=== PATIENT | female | born 1965 | race African-American/Black ===

== ENCOUNTER 2017-04-30 16:10 | Inpatient (IN) | payer OTHER ==
[~2017-04-30] VITALS: Ht 165.1 cm; Wt 49.5 kg
[2017-04-30 17:12] LABS: HEMATOCRIT 27.7 % (36.0-46.0); MCH 24.7 PG (29.0-34.0); MCHC 31.4 G/DL (30.0-36.0); MCV 78.7 FL (83-99); MEAN PLAT.VOLUME 8.6 uM^3 (9.5-12.4); PLATELET COUNT 485 K/uL (156-360); RBC DIS.WIDTH-SD 67.2 % (39-53); RED BLOOD COUNT 3.52 M/uL (3.80-5.20); WHITE BLOOD COUNT 4.9 K/uL (4.1-10.2)
[2017-04-30 17:21] LABS: CHLORIDE 112 mEq/L (99-109); POTASSIUM 2.7 mEq/L (3.7-5.4); SODIUM 140 mEq/L (136-147)
[2017-04-30 17:23] LABS: GLUCOSE 89 mg/dL (70-99)
[2017-04-30 17:25] LABS: ANION GAP 10 MEQ/L (2-14); TOTAL BILIRUBIN 0.3 mg/dL (0.0-1.0)
[2017-04-30 17:27] LABS: ALKALINE PHOSPHATASE 130 IU/L (3-129); GFR ESTIMATE (CALCULATED) 47 mL/min/
[2017-04-30 17:28] LABS: UREA NITROGEN (BUN) 29 mg/dL (9-23)
[2017-04-30 17:46] LABS: LIPASE 2 U/L (1.0-51.0)
[2017-04-30 17:47] LABS: ABS NEUTROPHIL COUNT 4.2; ANISOCYTOSIS 2+; BAND NEUTROPHILS 18.3 % (0-8.0); EOSINOPHIL ABS CT 0; HYPOCHROMASIA 1+; LYMPHOCYTES 6.9 % (15.0-45.0); MACROCYTES 1+; MICROCYTOSIS 1+; SEG.NEUTROPHILS 67.8 % (46.0-76.0)
[2017-04-30 19:40] LABS: ADD MIUA? YES; BILIRUBIN NEGATIVE; BLOOD MODERATE; COLOR YELLOW ((YELLOW)); GLUCOSE (STRIP) NEGATIVE; KETONES NEGATIVE; LEUKOCYTES LARGE; NITRITE NEGATIVE; PROTEIN (STRIP) 100; SPECIFIC GRAVITY 1.027 (1.000-1.030); UROBILINOGEN 0.2 MG/DL (0.2-1.0)
[2017-04-30 19:57] LABS: BACTERIA 2+ /HPF; CASTS NONE SEEN /LPF; CRYSTALS NONE SEEN; EPITHELIAL CELLS RARE /HPF; MUCUS 2+ /LPF; UCUL ADDED? YES; WHITE BLOOD CELLS 20-30 /HPF (0-5)
[2017-04-30] MEDS ORDERED: TYLENOL EXTRA500 MG PO (21:12)
[2017-04-30 22:55] VITALS: BP 87/66
[2017-04-30 23:00] VITALS: BP 88/50
[2017-05-01] VITALS (24 sets, daily range): BP systolic 78–107; BP diastolic 60–77
[2017-05-01 00:24] LABS: METH RESISTANT S AUREUS PCR NEGATIVE (NEGATIVE)
[2017-05-01 00:30] LABS: PROBE CHECK PASS; SPECIMEN PROCESSING CONTROL PASS
[2017-05-01 13:34] LABS: ANION GAP 11 MEQ/L (2-14); CHLORIDE 115 MEQ/L (99-109); GFR ESTIMATE (CALCULATED) > 59 mL/min/; GLUCOSE 62 mg/dL (70-99); MAGNESIUM 1.5 mg/dl (1.3-2.7); POTASSIUM 2.9 MEQ/L (3.7-5.4); SAMPLE HEMOLYSIS CHECK 0; SAMPLE ICTERIC CHECK 0; SAMPLE LIPEMIA CHECK 0; SODIUM 144 MEQ/L (136-147); UREA NITROGEN (BUN) 19 mg/dL (9-23)
[2017-05-02] VITALS (23 sets, daily range): BP systolic 95–113; BP diastolic 69–89
[2017-05-02 01:23] LABS: POINT-OF-CARE METER ID UU13113731
[2017-05-02 02:33] LABS: HEMATOCRIT 25.3 % (36.0-46.0); MCH 24.9 PG (29.0-34.0); MCHC 30.8 G/DL (30.0-36.0); MCV 80.8 FL (83-99); MEAN PLAT.VOLUME 8.6 uM^3 (9.5-12.4); PLATELET COUNT 430 K/uL (156-360); RBC DIS.WIDTH-SD 70.2 % (39-53); RED BLOOD COUNT 3.13 M/uL (3.80-5.20); WHITE BLOOD COUNT 10.7 K/uL (4.1-10.2)
[2017-05-02 02:41] LABS: INTER. NORMALIZED RATIO 1.5; PROTHROMBIN TIME 16.9 SEC (10.2-12.9)
[2017-05-02 02:44] LABS: PTT 38.5 SEC (25-37)
[2017-05-02 02:47] LABS: CHLORIDE 114 mEq/L (99-109); SODIUM 140 mEq/L (136-147)
[2017-05-02 02:49] LABS: GLUCOSE 68 mg/dL (70-99)
[2017-05-02 02:51] LABS: ANION GAP 9 MEQ/L (2-14)
[2017-05-02 02:53] LABS: ALKALINE PHOSPHATASE 129 IU/L (3-129); GFR ESTIMATE (CALCULATED) 56 mL/min/
[2017-05-02 02:54] LABS: UREA NITROGEN (BUN) 18 mg/dL (9-23)
[2017-05-02 02:55] LABS: DIRECT BILIRUBIN 0.1 mg/dL (0.0-0.3)
[2017-05-02 03:00] LABS: POTASSIUM 3.8 mEq/L (3.7-5.4); TOTAL BILIRUBIN 0.2 mg/dL (0.0-1.0)
[2017-05-02 03:12] LABS: EOSINOPHIL (%) 0.5 % (0-5); EOSINOPHIL COUNT 0.1 K/uL (0-0.3); IMMATURE GRANULOCYTE (%) 1.4 % (0.0-0.7); IMMATURE GRANULOCYTE COUNT 0.2 K/uL; INSTRUMENT ABS NEUTROPHIL CT 9.4 K/uL; LYMPHOCYTE COUNT 0.7 K/uL (1.0-2.8); MONOCYTE (%) 4.2 % (3-12); MONOCYTE COUNT 0.5 K/uL (0-0.8); NEUTROPHIL (%) 87.4 % (45-76); NEUTROPHIL COUNT 9.4 K/uL (1.8-6.4)
[2017-05-02 04:48] LABS: HEMATOCRIT 27.1 % (36.0-46.0); MCH 24.9 PG (29.0-34.0); MCV 80.2 FL (83-99); MEAN PLAT.VOLUME 8.1 uM^3 (9.5-12.4); PLATELET COUNT 443 K/uL (156-360); RBC DIS.WIDTH-CV 24.6 % (11.8-14.6); RBC DIS.WIDTH-SD 69.5 % (39-53); RED BLOOD COUNT 3.38 M/uL (3.80-5.20); WHITE BLOOD COUNT 11.6 K/uL (4.1-10.2)
[2017-05-02 05:01] LABS: CHLORIDE 114 mEq/L (99-109); POTASSIUM 3.5 mEq/L (3.7-5.4); SODIUM 141 mEq/L (136-147)
[2017-05-02 05:03] LABS: GLUCOSE 72 mg/dL (70-99)
[2017-05-02 05:04] LABS: ANION GAP 9 MEQ/L (2-14)
[2017-05-02 05:07] LABS: GFR ESTIMATE (CALCULATED) > 59 mL/min/; UREA NITROGEN (BUN) 17 mg/dL (9-23)
[2017-05-03] VITALS (22 sets, daily range): BP systolic 81–160; BP diastolic 59–86
[2017-05-03 07:51] LABS: POINT-OF-CARE METER ID UU13113748
[2017-05-03 10:47] LABS: C DIFF TOXIN NEGATIVE (NEGATIVE); PROBE CHECK PASS; SPECIMEN PROCESSING CONTROL PASS
[2017-05-04] VITALS (28 sets, daily range): BP systolic 73–133; BP diastolic 54–91
[2017-05-04 05:24] LABS: HEMATOCRIT 18.9 % (36.0-46.0); MCHC 32.3 G/DL (30.0-36.0); MCV 80.4 FL (83-99); RBC DIS.WIDTH-CV 24.6 % (11.8-14.6); RED BLOOD COUNT 2.35 M/uL (3.80-5.20)
[2017-05-04 06:02] LABS: EOSINOPHIL (%) 0.3 % (0-5); IMMATURE GRANULOCYTE (%) 1.2 % (0.0-0.7); IMMATURE GRANULOCYTE COUNT 0.1 K/uL; INSTRUMENT ABS NEUTROPHIL CT 7.7 K/uL; LYMPHOCYTE COUNT 0.7 K/uL (1.0-2.8); MEAN PLAT.VOLUME 8.9 uM^3 (9.5-12.4); MONOCYTE (%) 6.2 % (3-12); MONOCYTE COUNT 0.6 K/uL (0-0.8); NEUTROPHIL COUNT 7.7 K/uL (1.8-6.4); PLAT.SUFFICIENCY ADEQUATE
[2017-05-04 06:04] LABS: PLATELET COUNT 274 K/uL (156-360)
[2017-05-04 06:16] LABS: ANION GAP 6 MEQ/L (2-14); CHLORIDE 117 MEQ/L (99-109); GFR ESTIMATE (CALCULATED) > 59 mL/min/; GLUCOSE 70 mg/dL (70-99); SAMPLE HEMOLYSIS CHECK 0; SAMPLE ICTERIC CHECK 0; SAMPLE LIPEMIA CHECK 0; SODIUM 144 MEQ/L (136-147); UREA NITROGEN (BUN) 12 mg/dL (9-23)
[2017-05-04 14:49] LABS: HEMATOCRIT 32.9 % (36.0-46.0); MCV 82.7 FL (83-99)
[2017-05-05] VITALS (17 sets, daily range): BP systolic 0–129; BP diastolic 0–88
[2017-05-05 07:51] LABS: ANION GAP 7 MEQ/L (2-14); CHLORIDE 115 MEQ/L (99-109); GFR ESTIMATE (CALCULATED) > 59 mL/min/; POTASSIUM 4.5 MEQ/L (3.7-5.4); SAMPLE HEMOLYSIS CHECK 0; SAMPLE ICTERIC CHECK 0; SAMPLE LIPEMIA CHECK 0; SODIUM 141 MEQ/L (136-147); UREA NITROGEN (BUN) 13 mg/dL (9-23)
[2017-05-05 07:55] LABS: GLUCOSE 132 mg/dL (70-99)
[2017-05-05 08:51] LABS: HEMATOCRIT 22.8 % (36.0-46.0); MCV 81.1 FL (83-99); MEAN PLAT.VOLUME 9.3 uM^3 (9.5-12.4); NRBC (%) 0.2 /100 WBC (0-0); PLATELET COUNT 262 K/uL (156-360); RBC DIS.WIDTH-SD 62.4 % (39-53); RED BLOOD COUNT 2.81 M/uL (3.80-5.20); WHITE BLOOD COUNT 18.7 K/uL (4.1-10.2)
[2017-05-05 09:21] LABS: EOSINOPHIL (%) 0 % (0-5); IMMATURE GRANULOCYTE (%) 1.4 % (0.0-0.7); IMMATURE GRANULOCYTE COUNT 0.3 K/uL; LYMPHOCYTE COUNT 1.1 K/uL (1.0-2.8); MONOCYTE (%) 1.9 % (3-12); MONOCYTE COUNT 0.4 K/uL (0-0.8); NEUTROPHIL (%) 90.8 % (45-76)
[2017-05-05 19:03] LABS: HEMATOCRIT 32.6 % (36.0-46.0); MCV 82.7 FL (83-99)
[2017-05-06 00:58] VITALS: BP 113/86
[2017-05-06 04:17] VITALS: BP 127/95
[2017-05-06 05:46] LABS: EOSINOPHIL (%) 0 % (0-5); HEMATOCRIT 26.7 % (36.0-46.0); IMMATURE GRANULOCYTE (%) 1.4 % (0.0-0.7); IMMATURE GRANULOCYTE COUNT 0.2 K/uL; INSTRUMENT ABS NEUTROPHIL CT 13.8 K/uL; LYMPHOCYTE COUNT 0.7 K/uL (1.0-2.8); MCH 28.7 PG (29.0-34.0); MCHC 34.8 G/DL (30.0-36.0); MCV 82.4 FL (83-99); MEAN PLAT.VOLUME 10.1 uM^3 (9.5-12.4); MONOCYTE COUNT 0.5 K/uL (0-0.8); NEUTROPHIL (%) 91.1 % (45-76); NEUTROPHIL COUNT 13.8 K/uL (1.8-6.4); NRBC (%) 0.3 /100 WBC (0-0); PLATELET COUNT 235 K/uL (156-360); RBC DIS.WIDTH-SD 53.2 % (39-53); RED BLOOD COUNT 3.24 M/uL (3.80-5.20); WHITE BLOOD COUNT 15.1 K/uL (4.1-10.2)
[2017-05-06 06:22] LABS: ANION GAP 7 MEQ/L (2-14); CHLORIDE 118 MEQ/L (99-109); GFR ESTIMATE (CALCULATED) > 59 mL/min/; GLUCOSE 100 mg/dL (70-99); POTASSIUM 4.6 MEQ/L (3.7-5.4); SAMPLE HEMOLYSIS CHECK 0; SAMPLE ICTERIC CHECK 0; SAMPLE LIPEMIA CHECK 0; SODIUM 144 MEQ/L (136-147); UREA NITROGEN (BUN) 16 mg/dL (9-23)
[2017-05-06 07:10] VITALS: BP 101/55
[2017-05-06 16:00] VITALS: BP 132/60
[2017-05-07 01:01] VITALS: BP 124/74
[2017-05-07 06:50] LABS: HEMATOCRIT 27.4 % (36.0-46.0); MCH 27.8 PG (29.0-34.0); MCHC 33.6 G/DL (30.0-36.0); MCV 82.8 FL (83-99); MEAN PLAT.VOLUME 11.3 uM^3 (9.5-12.4); NRBC (%) 0.1 /100 WBC (0-0); PLATELET COUNT 225 K/uL (156-360); RBC DIS.WIDTH-CV 19.1 % (11.8-14.6); RBC DIS.WIDTH-SD 57.2 % (39-53); RED BLOOD COUNT 3.31 M/uL (3.80-5.20); WHITE BLOOD COUNT 16.7 K/uL (4.1-10.2)
[2017-05-07 07:16] LABS: ANION GAP 7 MEQ/L (2-14); CHLORIDE 117 MEQ/L (99-109); GFR ESTIMATE (CALCULATED) > 59 mL/min/; GLUCOSE 95 mg/dL (70-99); POTASSIUM 4.8 MEQ/L (3.7-5.4); SAMPLE HEMOLYSIS CHECK 0; SAMPLE ICTERIC CHECK 0; SAMPLE LIPEMIA CHECK 0; SODIUM 141 MEQ/L (136-147); UREA NITROGEN (BUN) 18 mg/dL (9-23)
[2017-05-07 08:24] VITALS: BP 128/81
[2017-05-07 16:10] VITALS: BP 127/87
[2017-05-07 23:25] VITALS: BP 118/86
[2017-05-08 05:31] LABS: HEMATOCRIT 29.2 % (36.0-46.0); MCH 28.7 PG (29.0-34.0); MCHC 33.9 G/DL (30.0-36.0); MCV 84.6 FL (83-99); MEAN PLAT.VOLUME 10.5 uM^3 (9.5-12.4); NRBC (%) 0.1 /100 WBC (0-0); PLATELET COUNT 243 K/uL (156-360); RBC DIS.WIDTH-CV 19.9 % (11.8-14.6); RBC DIS.WIDTH-SD 59.9 % (39-53); RED BLOOD COUNT 3.45 M/uL (3.80-5.20); WHITE BLOOD COUNT 16.7 K/uL (4.1-10.2)
[2017-05-08 07:17] LABS: ANION GAP 7 MEQ/L (2-14); CHLORIDE 117 MEQ/L (99-109); GFR ESTIMATE (CALCULATED) > 59 mL/min/; GLUCOSE 93 mg/dL (70-99); POTASSIUM 5.2 MEQ/L (3.7-5.4); SAMPLE HEMOLYSIS CHECK 0; SAMPLE ICTERIC CHECK 0; SAMPLE LIPEMIA CHECK 0; SODIUM 144 MEQ/L (136-147); UREA NITROGEN (BUN) 19 mg/dL (9-23)
[2017-05-08 08:12] VITALS: BP 118/83
[2017-05-08 15:11] VITALS: BP 103/78
[2017-05-08 23:28] VITALS: BP 111/67
[2017-05-09 08:15] VITALS: BP 111/86
[2017-05-09] MEDS ORDERED: CIPROFLOXACIN250 MG PO ×2 (12:03→13:19)
[2017-05-09] MEDS ORDERED: FAMOTIDINE20 MG PO ×2 (12:03→13:19)
[2017-05-09] MEDS ORDERED: FERROUS SULFAT325 MG PO ×2 (12:03→13:19)
[2017-05-09] MEDS ORDERED: METRONIDAZOLE500 MG PO ×2 (12:03→13:19)
[2017-05-09] MEDS ORDERED: ENDOCET 5-3251 EACH PO (12:03)
[2017-05-09] MEDS ORDERED: PREDNISONE20 MG PO ×2 (12:03→13:19)
[2017-05-09] MEDS ORDERED: CHOLESTYRAMINE P4 GM PO ×2 (12:03→13:19)
== END 2017-05-09 14:10 | disposition home or self-care (01) | DRG 329 ==
LOC: EME 16:10 → 4WEST 20:52 → EDOF 20:52 → ENRESERV 20:59 → 4WEST 22:53 → ENRESERV 05-05 09:38 → 2EASTP 05-05 10:26
PROVIDERS: Hospitalist; Internal Medicine; Internal Medicine Critical Care Medicine; Obstetrics & Gynecology; Physician Assistant; Physician Assistant Medical; Physician Assistant Surgical
PROC: 0D9P00Z Drainage of Rectum with Drainage Device, Open Approach (ICD-10-PCS; principal; 2017-05-04)
PROC: 30233N1 Transfusion of Nonautologous Red Blood Cells into Peripheral Vein, Percutaneous Approach (ICD-10-PCS; principal; 2017-05-04)
PROC: 0DBE8ZX Excision of Large Intestine, Via Natural or Artificial Opening Endoscopic, Diagnostic (ICD-10-PCS; principal; 2017-05-04)
DX: K50.114 Crohn's disease of large intestine with abscess (principal); R65.21 Severe sepsis with septic shock; A41.9 Sepsis, unspecified organism; N17.9 Acute kidney failure, unspecified; R64 Cachexia; E46 Unspecified protein-calorie malnutrition; E87.6 Hypokalemia; N30.00 Acute cystitis without hematuria; K61.2 Anorectal abscess; B96.20 Unspecified Escherichia coli [E. coli] as the cause of diseases classified elsewhere; I47.1 Supraventricular tachycardia; R19.7 Diarrhea, unspecified; R63.0 Anorexia; R63.4 Abnormal weight loss; E88.09 Other disorders of plasma-protein metabolism, not elsewhere classified; Z91.19 Patient's noncompliance with other medical treatment and regimen; F17.200 Nicotine dependence, unspecified, uncomplicated; D50.9 Iron deficiency anemia, unspecified; D63.8 Anemia in other chronic diseases classified elsewhere; E87.2 Acidosis; Z68.1 Body mass index [BMI] 19.9 or less, adult; D68.9 Coagulation defect, unspecified; G89.29 Other chronic pain; R29.810 Facial weakness; R47.01 Aphasia; D50.0 Iron deficiency anemia secondary to blood loss (chronic); D62 Acute posthemorrhagic anemia; R15.9 Full incontinence of feces
CPT/HCPCS: 70496; 70498; 70551; 72197; 74177; 80048; 80053; 81003; 82248; 82607; 82746; 82948; 83605; 83690; 83735; 85014; 85018; 85025; 85027; 85610; 85730; 86900; 86901; 86920; 87040; 87077; 87086; 87186; 87493; 87506; 87641; 88305; 88312; 94640; 99281; 99284; J0295; J0330; J1100; J1170; J1644; J1650; J2060; J2270; J2405; J2543; J2920; J3010; J3370; J3475; J3480; J7050; J7120; J7512; P9016

== ENCOUNTER 2018-02-02 14:31 | Inpatient (IN) | payer OTHER ==
[~2018-02-02] VITALS: Ht 165.1 cm; Wt 49.0 kg
[~2018-02-02 14:31] MED LIST: CHOLESTYRAMINE P4 GM PO; CIPROFLOXACIN250 MG PO; ENDOCET 5-3251 EACH PO; FAMOTIDINE20 MG PO; FERROUS SULFAT325 MG PO; METRONIDAZOLE500 MG PO; PREDNISONE20 MG PO; TYLENOL EXTRA500 MG PO
[2018-02-02 16:05] LABS: HEMATOCRIT 25.2 % (36.0-46.0); HEMOGLOBIN 8.4 G/DL (11.9-15.5); MCHC 33.3 G/DL (30.0-36.0); MCV 86.9 FL (83-99); PLATELET COUNT 638 K/uL (156-360); RBC DIS.WIDTH-CV 21.6 % (11.8-14.6); RBC DIS.WIDTH-SD 67.7 % (39-53); WHITE BLOOD COUNT 9.8 K/uL (4.1-10.2)
[2018-02-02 16:09] LABS: CARBON DIOXIDE (BICARBONATE) 22.7 MEQ/L (20-31)
[2018-02-02 16:15] LABS: ALBUMIN 2.2 g/dL (3.2-4.8); CHLORIDE 103 mEq/L (99-109); POTASSIUM 3.5 mEq/L (3.7-5.4); SODIUM 138 mEq/L (136-147)
[2018-02-02 16:18] LABS: GLUCOSE 67 mg/dL (70-99); TOTAL PROTEIN 5.4 g/dL (6.4-8.3)
[2018-02-02 16:19] LABS: TOTAL BILIRUBIN 0.5 mg/dL (0.0-1.0)
[2018-02-02 16:21] LABS: ALKALINE PHOSPHATASE 128 IU/L (3-129); CREATININE 0.9 mg/dL (0.6-1.3); GFR ESTIMATE (CALCULATED) > 59 mL/min/
[2018-02-02 16:22] LABS: UREA NITROGEN (BUN) 23 mg/dL (9-23)
[2018-02-02 16:23] LABS: AST (GOT) 10 IU/L (2-34)
[2018-02-02 16:24] LABS: ALT (GPT) 8 IU/L (3-49)
[2018-02-02 16:25] LABS: LIPASE 83 U/L (1.0-51.0)
[2018-02-02 16:46] LABS: ABS NEUTROPHIL COUNT 8.9; ANISOCYTOSIS 2+; BAND NEUTROPHILS 16.5 % (0-8.0); BASOPHILS 0.9 %; EOSINOPHIL ABS CT 0; HYPOCHROMASIA 2+; LYMPHOCYTES 4.3 % (15.0-45.0); MACROCYTES 1+; MONOCYTES 3.5 % (0-9.0); NUCLEATED RBC'S 0.9; PLAT.SUFFICIENCY INCREASED; POIKILOCYTOSIS 1+; POLYCHROMASIA 1+; SCHISTOCYTES 1+; SEG.NEUTROPHILS 74.8 % (46.0-76.0)
[2018-02-02 18:40] LABS: C DIFF TOXIN NEGATIVE (NEGATIVE)
[2018-02-02] MEDS ORDERED: TYLENOL EXTRA500 MG PO (22:14)
[2018-02-03 02:07] VITALS: BP 78/59
[2018-02-03 04:55] VITALS: BP 81/61
[2018-02-03 05:56] LABS: ALBUMIN 2.4 G/DL (3.2-4.8); ALT (GPT) 6 IU/L (3-49); AST (GOT) < 7 IU/L (2-34); CHLORIDE 114 MEQ/L (99-109); CREATININE 0.8 MG/DL (0.6-1.3); DIRECT BILIRUBIN 0.2 mg/dL (0.0-0.3); GFR ESTIMATE (CALCULATED) > 59 mL/min/; MAGNESIUM 1.5 mg/dl (1.3-2.7); PHOSPHORUS 2.4 mg/dL (2.5-4.9); POTASSIUM 3.2 MEQ/L (3.7-5.4); SODIUM 141 MEQ/L (136-147); TOTAL BILIRUBIN 0.3 MG/DL (0.0-1.0); TOTAL PROTEIN 4.8 G/DL (6.4-8.3); UREA NITROGEN (BUN) 19 mg/dL (9-23)
[2018-02-03 05:57] LABS: ALKALINE PHOSPHATASE 78 IU/L (3-129); GLUCOSE 133 mg/dL (70-99); PREALBUMIN 5.2 mg/dL (10-40); TRIGLYCERIDES 50 MG/DL (Normal: <150)
[2018-02-03 06:18] LABS: IRON 26 MCG/DL (35-150)
[2018-02-03 06:20] LABS: TRANSFERRIN (TIBC) < 75 mg/dL (215-380); TRANSFERRIN SATUR. 30 % (20-55)
[2018-02-03 07:25] VITALS: BP 82/58
[2018-02-03 07:36] LABS: THYROTROPIN (TSH) 0.42 MIU/L (0.4-5.5)
[2018-02-03 07:42] LABS: FERRITIN 326 NG/ML (10-291)
[2018-02-03 07:56] LABS: FOLIC ACID (FOLATE) > 22.0 NG/ML (5.0-22.0)
[2018-02-03 15:09] VITALS: BP 92/60
[2018-02-03 20:22] VITALS: BP 90/58
[2018-02-03 23:41] VITALS: BP 92/68
[2018-02-04 05:43] VITALS: BP 90/62
[2018-02-04 06:20] LABS: CHLORIDE 113 MEQ/L (99-109); GFR ESTIMATE (CALCULATED) > 59 mL/min/; GLUCOSE 161 mg/dL (70-99); PHOSPHORUS 1.7 mg/dL (2.5-4.9); POTASSIUM 3.6 MEQ/L (3.7-5.4); SODIUM 134 MEQ/L (136-147); UREA NITROGEN (BUN) 18 mg/dL (9-23)
[2018-02-04 06:28] LABS: MAGNESIUM 2.6 mg/dl (1.3-2.7)
[2018-02-04 07:20] VITALS: BP 88/60
[2018-02-04 08:50] LABS: ALBUMIN 1.8 G/DL (3.2-4.8); ALKALINE PHOSPHATASE 76 IU/L (3-129); ALT (GPT) 8 IU/L (3-49); AST (GOT) 7 IU/L (2-34); CHLORIDE 114 MEQ/L (99-109); GFR ESTIMATE (CALCULATED) > 59 mL/min/; GLUCOSE 131 mg/dL (70-99); POTASSIUM 3.6 MEQ/L (3.7-5.4); SODIUM 135 MEQ/L (136-147); TOTAL PROTEIN 4.2 G/DL (6.4-8.3); UREA NITROGEN (BUN) 17 mg/dL (9-23)
[2018-02-04 08:51] LABS: TOTAL BILIRUBIN 0.2 MG/DL (0.0-1.0)
[2018-02-04 11:22] VITALS: BP 88/58
[2018-02-04 16:59] VITALS: BP 88/63
[2018-02-04 20:17] VITALS: BP 88/59
[2018-02-05] VITALS (10 sets, daily range): BP systolic 83–100; BP diastolic 51–65
[2018-02-05 07:02] LABS: HEMATOCRIT 20.1 % (36.0-46.0); MCH 28.6 PG (29.0-34.0); MCHC 30.8 G/DL (30.0-36.0); RBC DIS.WIDTH-CV 23.5 % (11.8-14.6); RBC DIS.WIDTH-SD 77.1 % (39-53); WHITE BLOOD COUNT 7.6 K/uL (4.1-10.2)
[2018-02-05 07:05] LABS: HEMOGLOBIN 6.2 G/DL (11.9-15.5); MCV 92.6 FL (83-99); RED BLOOD COUNT 2.17 M/uL (3.80-5.20)
[2018-02-05 07:13] LABS: ALBUMIN 1.7 G/DL (3.2-4.8); ALKALINE PHOSPHATASE 77 IU/L (3-129); ALT (GPT) 9 IU/L (3-49); AST (GOT) 8 IU/L (2-34); CHLORIDE 114 MEQ/L (99-109); CREATININE 0.9 MG/DL (0.6-1.3); DIRECT BILIRUBIN 0.1 mg/dL (0.0-0.3); GFR ESTIMATE (CALCULATED) > 59 mL/min/; GLUCOSE 100 mg/dL (70-99); POTASSIUM 3.9 MEQ/L (3.7-5.4); PREALBUMIN 7.7 mg/dL (10-40); SODIUM 138 MEQ/L (136-147); TOTAL BILIRUBIN 0.2 MG/DL (0.0-1.0); TOTAL PROTEIN 3.9 G/DL (6.4-8.3); TRIGLYCERIDES 37 MG/DL (Normal: <150); UREA NITROGEN (BUN) 10 mg/dL (9-23)
[2018-02-05 07:14] LABS: PHOSPHORUS 2.6 mg/dL (2.5-4.9)
[2018-02-05 07:23] LABS: ABS NEUTROPHIL COUNT 7.2; ANISOCYTOSIS 2+; BAND NEUTROPHILS 23.7 % (0-8.0); BURR CELLS 2+; EOSINOPHIL ABS CT 0.1; EOSINOPHILS 0.9 % (0-5.0); LYMPHOCYTES 1.7 % (15.0-45.0); MACROCYTES 2+; METAMYELOCYTES 0.9 %; MONOCYTES 1.8 % (0-9.0); NUCLEATED RBC'S 0.9; OVALOCYTES 1+; PLAT.SUFFICIENCY ADEQUATE; POIKILOCYTOSIS 3+; POLYCHROMASIA 1+
[2018-02-05 07:24] LABS: PLATELET COUNT 442 K/uL (156-360)
[2018-02-06] VITALS (10 sets, daily range): BP systolic 88–107; BP diastolic 59–72
[2018-02-06 06:42] LABS: HEMATOCRIT 29.4 % (36.0-46.0); MCH 29.4 PG (29.0-34.0); MCV 89.1 FL (83-99); PLATELET COUNT 414 K/uL (156-360); RBC DIS.WIDTH-CV 19.7 % (11.8-14.6); RBC DIS.WIDTH-SD 60.9 % (39-53); WHITE BLOOD COUNT 8.7 K/uL (4.1-10.2)
[2018-02-06 06:43] LABS: HEMOGLOBIN 9.7 G/DL (11.9-15.5)
[2018-02-06 06:59] LABS: CHLORIDE 116 MEQ/L (99-109); CREATININE 0.8 MG/DL (0.6-1.3); GFR ESTIMATE (CALCULATED) > 59 mL/min/; GLUCOSE 108 mg/dL (70-99); MAGNESIUM 1.8 mg/dl (1.3-2.7); PHOSPHORUS 3.1 mg/dL (2.5-4.9); POTASSIUM 3.5 MEQ/L (3.7-5.4); SODIUM 142 MEQ/L (136-147); UREA NITROGEN (BUN) 8 mg/dL (9-23)
[2018-02-07 03:43] VITALS: BP 106/72
[2018-02-07 07:53] LABS: CHLORIDE 112 MEQ/L (99-109); CREATININE 0.7 MG/DL (0.6-1.3); GFR ESTIMATE (CALCULATED) > 59 mL/min/; GLUCOSE 96 mg/dL (70-99); PHOSPHORUS 3.2 mg/dL (2.5-4.9); SODIUM 141 MEQ/L (136-147); UREA NITROGEN (BUN) 11 mg/dL (9-23)
[2018-02-07 07:55] LABS: MAGNESIUM 2.1 mg/dl (1.3-2.7)
[2018-02-07 08:00] VITALS: BP 100/74
[2018-02-07 11:52] VITALS: BP 124/82
[2018-02-07 16:29] VITALS: BP 100/74
[2018-02-07 20:37] VITALS: BP 113/77
[2018-02-08] VITALS (8 sets, daily range): BP systolic 98–125; BP diastolic 64–80
[2018-02-08 06:31] LABS: CHLORIDE 110 MEQ/L (99-109); CREATININE 0.6 MG/DL (0.6-1.3); GFR ESTIMATE (CALCULATED) > 59 mL/min/; GLUCOSE 119 mg/dL (70-99); PHOSPHORUS 2.8 mg/dL (2.5-4.9); POTASSIUM 3.5 MEQ/L (3.7-5.4); SODIUM 143 MEQ/L (136-147); UREA NITROGEN (BUN) 11 mg/dL (9-23)
[2018-02-09 03:28] VITALS: BP 101/66
[2018-02-09 05:40] LABS: CHLORIDE 108 MEQ/L (99-109); CREATININE 0.6 MG/DL (0.6-1.3); GFR ESTIMATE (CALCULATED) > 59 mL/min/; GLUCOSE 121 mg/dL (70-99); MAGNESIUM 2.1 mg/dl (1.3-2.7); POTASSIUM 3.7 MEQ/L (3.7-5.4); SODIUM 143 MEQ/L (136-147); UREA NITROGEN (BUN) 11 mg/dL (9-23)
[2018-02-09 07:47] VITALS: BP 104/66
[2018-02-09 11:34] VITALS: BP 111/87
== END 2018-02-09 13:11 | disposition short-term general hospital (02) | DRG 385 ==
LOC: EME 14:31 → EDOF 22:11 → 5SOUTH 22:11 → ENRESERV 22:12 → 4EAST 02-03 02:01 → ENRESERV 02-04 11:05 → 5SOUTH 02-04 13:57
PROVIDERS: Emergency Medicine; Hospitalist; Physician Assistant
PROC: 30233N1 Transfusion of Nonautologous Red Blood Cells into Peripheral Vein, Percutaneous Approach (ICD-10-PCS; 2018-02-05)
PROC: 3E0336Z Introduction of Nutritional Substance into Peripheral Vein, Percutaneous Approach (ICD-10-PCS; principal; 2018-02-07)
DX: K50.913 Crohn's disease, unspecified, with fistula (principal); K50.914 Crohn's disease, unspecified, with abscess; N82.3 Fistula of vagina to large intestine; K61.2 Anorectal abscess; Z91.14 Patient's other noncompliance with medication regimen; E43 Unspecified severe protein-calorie malnutrition; R64 Cachexia; E87.6 Hypokalemia; I95.9 Hypotension, unspecified; D63.8 Anemia in other chronic diseases classified elsewhere; R62.7 Adult failure to thrive; E86.0 Dehydration; Z68.1 Body mass index [BMI] 19.9 or less, adult; E83.42 Hypomagnesemia; R15.9 Full incontinence of feces; F17.200 Nicotine dependence, unspecified, uncomplicated
CPT/HCPCS: 71045; 74177; 76937; 80048; 80053; 81003; 82248; 82272; 82607; 82728; 82746; 82803; 82948; 83540; 83605; 83690; 83735; 84100; 84134; 84443; 84466; 84478; 84540; 84630 90; 85025; 85027; 86850; 86900; 86901; 86920; 87040; 87070; 87075; 87205; 87493; 93005; 99281; 99285; J0610; J0692; J0744; J1170; J1200; J1644; J1885; J2405; J2930; J3370; J3411; J3475; J7030; J7040; J7042; J7050; J7070; P9016; P9047; S0030